=== PATIENT | female | born 1940 | race African-American/Black ===

== ENCOUNTER 2016-08-28 19:22 | Emergency (ER) | payer OTHER ==
[2016-08-28 19:29] VITALS: BP 172/96; PULSE 90; TEMP 99.1; BMI 30.9
--- NOTE | 2016-08-28 19:44 | PDOC ---
History of Present Illness - History of Present Illness Initial Comments: 08/28/16 19:59 The patient is a 76 year old female, with a significant past medical history of hypertension, Diabetes Type II, hyperlipidemia, and GERD, who presents to the emergency department for evaluation of erythema under her left breast and posterior neck. She states the area under her left breast became itchy and reports the area of redness [place] now. She reports using petroleum jelly to the erythema under left breast. She denies burning to the erythema on her posterior neck. She states that both areas of erythema are painful, however, reports increased pain to the area under her left breast. She denies chest pain, shortness of breath, headache and dizziness. She denies fever, chills, nausea, vomit, diarrhea and constipation. She denies dysuria, frequency, urgency and hematuria. PAST MEDICAL HISTORY: hypertension, Diabetes Type II, hyperlipidemia, and GERD PAST SURGICAL HISTORY: no significant history FAMILY HISTORY: no pertinent history SOCIAL HISTORY: Pt lives with family MEDICATIONS: reviewed ALLERGIES: As per nursing notes ROS General: No fevers or chills, no weakness, no weight loss HEENT: No change in vision. No sore throat,. No ear pain CardioVascular: No chest pain or shortness of breath Respiratory: No cough, or wheezing. Gastrointestinal: no nausea, vomiting, diarrhea or constipation, No rectal bleeding Genitourinary: No dysuria, hematuria, or frequency Musculoskeletal: No joint or muscle pain or swelling Neurologic: No headache, vertigo, dizziness or loss of consciousness Psychiatric: nor depression Skin: (+) itchy rash under left breast and redness to posterior neck. No easy bruising Endocrine: no increased thirst or abnormal weight change Allergic: no skin or latex allergy All other systems reviewed and normal Physical Exam: GENERAL: The patient is awake, alert, and fully oriented, in no acute distress. HEAD: Normal with no signs of trauma. EYES: Pupils equal, round and reactive to light, extraocular movements intact, sclera anicteric, conjunctiva clear. EXTREMITIES: Normal range of motion, no edema. NEUROLOGICAL: Normal speech, normal gait. PSYCH: Normal mood, normal affect. SKIN: (+) [Left breast]: erythema underneath and in the fold of the breast with numerous satellite lesions. no purulence, increased warmth or swelling. [Posterior neck]: mild localized erythema without swelling, discharge or warmth. Neuro: Alert and oriented x3, nonfocal exam, grossly intact, normal gait Psych: Normal mood and affect <Leidy Herrera - Last Filed: 08/28/16 19:59> - General History Source: Patient Exam Limitations: No Limitations - History of Present Illness Initial Comments: 08/28/16 20:11 A portion of this note was documented by scribe services under my direction. I have reviewed the details of the note, within reason, and agree with the documentation. The case summary and management plan written by me. Assessment and plan: This is a 76-year-old female who comes in complaining of redness under her left breast area. Patient has a fungal infection under the left breast secondary to the heat and moisture under her left breast. In addition to that she has a small fungal infection in her posterior neck folds on the right-hand side of her neck. Patient had been putting petroleum jelly on the area which was making it worse. Discussed with patient's importance of keeping the area dry using powder and sent a prescription for nystatin cream to her pharmacy. Patient was told to apply the cream twice a day to the affected areas until the rash is improved. Patient discharged home with her son who will get the fungal cream and patient has a primary care doctor she can follow up with at the end of the week for a reevaluation. <Qamar Michelle I - Last Filed: 08/28/16 20:15> - General Chief Complaint: Redness To Affected Area Stated Complaint: RED UNDER LT BREAST Time Seen by Provider: 08/28/16 19:43 Past History <Leidy Herrera - Last Filed: 08/28/16 19:59> - Past Medical History Diabetes: Yes (TYPE II) GI Disorders: Yes (GERD) HTN: Yes - Psycho/Social/Smoking Cessation Hx Anxiety: No Suicidal Ideation: No Smoking History: Never smoked Have you smoked in the past 12 months: No Hx Alcohol Use: No Drug/Substance Use Hx: No Substance Use Type: None <Qamar Michelle I - Last Filed: 08/28/16 20:15> - Past Medical History Allergies/Adverse Reactions: Allergies Allergy/AdvReac Type Severity Reaction Status Date / Time chloroquine Allergy Verified 06/08/14 09:46 Home Medications: Ambulatory Orders Aspirin Coated [Ecotrin -] 81 mg PO DAILY 06/08/14 Calcium Carbonate/Vitamin D3 [Calcium 600 + Vit D 400 Tablet] 1 each PO BID Metformin HCl [Glucophage -] 500 mg PO BID 06/08/14 Omeprazole [Prilosec (RX)] 40 mg PO DAILY 06/08/14 Amlodipine Besylate [Norvasc -] 10 mg PO DAILY 09/05/15 Hydrochlorothiazide [Hctz -] 50 mg PO DAILY 08/28/16 Nystatin Cream [Mycostatin Cream -] 1 applic TP BID #1 tube 08/28/16 *Physical Exam - Vital Signs Last Vital Signs Temp Pulse Resp BP Pulse Ox 99.1 F 90 16 172/96 99 08/28/16 19:27 08/28/16 19:27 08/28/16 19:27 08/28/16 19:27 08/28/16 19:27 <Leidy Herrera - Last Filed: 08/28/16 19:59> - Vital Signs Last Vital Signs Temp Pulse Resp BP Pulse Ox 99.1 F 90 16 172/96 99 08/28/16 19:27 08/28/16 19:27 08/28/16 19:27 08/28/16 19:27 08/28/16 19:27 <Qamar Michelle I - Last Filed: 08/28/16 20:15> *DC/Admit/Observation/Transfer - Attestations Scribe Attestion: 08/28/16 20:00 Documentation prepared by Leidy Herrera, acting as manager of medical for Qamar Michelle MD <Leidy Herrera - Last Filed: 08/28/16 19:59> - Discharge Dispostion Admit: No <Qamar Michelle I - Last Filed: 08/28/16 20:15> Diagnosis at time of Disposition: Dermatomycosis - Discharge Dispostion Disposition: HOME Condition at time of disposition: Stable - Prescriptions Prescriptions: Nystatin Cream [Mycostatin Cream -] 1 applic TP BID #1 tube - Referrals Referrals: STAFF,NOT ON [Primary Care Provider] - - Patient Instructions Additional Instructions: Get the prescription filled for nystatin cream and apply to the affected area twice a day. In addition to that you can also apply some AB powder to the area to help keep it dry. Apply it to the area under the breast as well as on the back of the neck. If you develop fevers, increasing redness or worsening symptoms return to the emergency room or see your primary care doctor. If you're not better in 3-4 days follow-up with your primary care doctor. Continue any medications as previously prescribed by your physician. You should follow up with your primary doctor as soon as possible regarding today's emergency department visit. . Please make sure your doctor reviews the results of your emergency evaluation. Thank you for coming to the Emergency Department today for your care. It was a pleasure to see you today. Please note that your evaluation is INCOMPLETE until you follow-up with your doctor.
[2016-08-28] MEDS ORDERED: NYSTATIN 100,000 UNIT/GM TOPICAL CREAM 15 GM TUBE TP STA (20:42)
== END 2016-08-28 20:43 | disposition home or self-care (01) ==
LOC: FER 19:22
DX: B36.9 Superficial mycosis, unspecified (principal); K21.9 Gastro-esophageal reflux disease without esophagitis; I10 Essential (primary) hypertension; E11.9 Type 2 diabetes mellitus without complications
CPT/HCPCS: 99281-25